=== PATIENT | female | born 1995 | race Caucasian/White ===

== ENCOUNTER 2024-05-06 06:40 | Inpatient (IN) | payer OTHER ==
[2024-05-06] MEDS ORDERED: Sodium Chloride 0.9% 10 ML Syringe FLUSH PRN (06:59)
[2024-05-06] MEDS ORDERED: Carboprost Tromethamine 250 MCG/1 mL Vial IM PRN (06:59)
[2024-05-06] MEDS ORDERED: Butorphanol 2 MG/ML SDV IVPUSH PRN (06:59)
[2024-05-06] MEDS ORDERED: Terbutaline 1 MG/ML SDV SUBCUT PRN (06:59)
[2024-05-06] MEDS ORDERED: Misoprostol 200 MCG Tab PO PRN (06:59)
[2024-05-06] MEDS ORDERED: Sodium Chloride 0.9% 20 ML SDV IV PRN (06:59)
[2024-05-06] MEDS ORDERED: Sodium Chloride 0.9% 2.5 ML Syringe FLUSH PRN (06:59)
[2024-05-06] MEDS ORDERED: Methylergonovine 0.2 MG/1 ML Amp IM PRN (06:59)
[2024-05-06] MEDS ORDERED: Water For Irrigation,Sterile 1,000 ML Container IRR PRN (06:59)
[2024-05-06] MEDS ORDERED: Oxytocin/0.9 % Sodium Chloride 30 UNIT/500 ML BAG IV SCH (07:00)
[2024-05-06 08:19] LABS: HEMATOCRIT 33.9 % (37.0-47.0); HEMOGLOBIN 11.7 g/dL (12.0-16.0); MEAN CORPUSCULAR HEMOGLOBIN 29.7 pg (28.0-32.0); MEAN CORPUSCULAR HGB CONC 34.5 g/dL (32.0-36.0); MEAN PLATELET VOLUME 10.5 fL (9.4-12.3); PLATELET COUNT,PLT 303 K/uL (150-400); RED BLOOD CELL COUNT 3.94 M/uL (4.10-5.30); WHITE BLOOD CELL COUNT,WBC 14.51 K/uL (3.9-11.3)
[2024-05-06] MEDS: Misoprostol 50 MCG (1/2 of 100 MCG) Tab PO ONE (08:51)
[2024-05-06] MEDS: Misoprostol 25 MCG (1/4 of 100 MCG) Tab VAG PRN ×2 (08:52→13:08)
[2024-05-06] MEDS ORDERED: Albuterol 8 GM Inhaler INH PRN (08:59)
[2024-05-06] MEDS: Lactated Ringers 1,000 ML IV SCH (17:53)
[2024-05-06] MEDS: Oxytocin/0.9 % Sodium Chloride 30 UNIT/500 ML BAG IV SCH (17:53)
[2024-05-06] MEDS ORDERED: Ropivacaine HCl/PF 200 ML ONE (20:20)
[2024-05-06] MEDS ORDERED: Bupivacaine 0.5% 10 ML SDV ONE (20:20)
[2024-05-06] MEDS ORDERED: Phenylephrine HCl In 0.9% NaCl 1 MG/10 ML Syringe ONE (20:20)
[2024-05-06] MEDS: Ropivacaine HCl/PF 400 MG in Premix Bag 1 BAG EPIDUR SCH (20:42)
[2024-05-06] MEDS ORDERED: ePHEDrine 50 MG/ML SDV IVPUSH PRN (20:48)
[2024-05-06] MEDS ORDERED: Bupivacaine 0.5% 10 ML SDV INJECT ONE (20:48)
[2024-05-06] MEDS ORDERED: ePHEDrine 50 MG/ML SDV IM PRN (20:48)
[2024-05-06] MEDS ORDERED: dexmedeTOMIDine HCl 200 MCG/2 ML SDV EPIDUR SCH (21:00)
[2024-05-07] MEDS: Ondansetron 4 MG/2 ML SDV IVPUSH PRN (01:53)
[2024-05-07] MEDS: Phenylephrine HCl In 0.9% NaCl 1 MG/10 ML Syringe IVPUSH PRN (02:00)
[2024-05-07 09:33] LABS: PH,UMBILICAL ARTERIAL 7.322 (7.18-7.38)
[2024-05-07 09:34] LABS: PH,UMBILICAL VENOUS 7.325 (7.25-7.45)
[2024-05-07] MEDS: Ibuprofen 800 MG Tab PO PRN (09:47)
[2024-05-07] MEDS: Benzocaine/Menthol 20%-0.5% Spray 78 GM Cannister TOP PRN (09:47)
[2024-05-07] MEDS: Witch Hazel Medicated Pads 40/Jar TOP PRN (09:48)
[2024-05-07] MEDS: Lanolin 100% Cream 7 GM Tube TOP PRN (09:48)
[2024-05-07] MEDS: Lidocaine 1% 50 ML MDV INJECT PRN (10:08)
[2024-05-07] MEDS: Albuterol 0.083% 2.5 MG/3 ML Neb Soln NEB PRN (15:07)
[2024-05-07] MEDS: Acetaminophen 500 MG Tab PO PRN (15:09)
[2024-05-07] MEDS: Docusate Sodium 100 MG Cap PO PRN (19:56)
[2024-05-07] MEDS: Ferrous Sulfate 325 MG Tab PO SCH (20:00)
[2024-05-07] MEDS: guaiFENesin/Dextromethorphan 100-10 MG/5 ML Soln 10 ML Cup PO PRN (21:49)
[2024-05-08 06:34] LABS: HEMATOCRIT 33.3 % (37.0-47.0); MEAN CORPUSCULAR HEMOGLOBIN 29.4 pg (28.0-32.0); MEAN PLATELET VOLUME 9.9 fL (9.4-12.3); PLATELET COUNT,PLT 271 K/uL (150-400); RED BLOOD CELL COUNT 3.74 M/uL (4.10-5.30); WHITE BLOOD CELL COUNT,WBC 21.35 K/uL (3.9-11.3)
[2024-05-08] MEDS: Prenatal Multivitamin with Calcium/Folic Acid/Iron Tab PO SCH (08:24)
== END 2024-05-08 16:40 | disposition home or self-care (01) | DRG 807 ==
LOC: MW.OB 06:40 → OBSVTOIN 06:40 → MW.OB 05-07 11:46
PROVIDERS: ADMIT Obstetrics & Gynecology; ATTEND Obstetrics & Gynecology
PROC: 10E0XZZ Delivery of Products of Conception, External Approach (ICD-10-PCS; principal; 2024-05-07)
PROC: 3E033VJ Introduction of Other Hormone into Peripheral Vein, Percutaneous Approach (ICD-10-PCS; 2024-05-07)
PROC: 3E0P7VZ Introduction of Hormone into Female Reproductive, Via Natural or Artificial Opening (ICD-10-PCS; 2024-05-07)
PROC: 0HQ9XZZ Repair Perineum Skin, External Approach (ICD-10-PCS; 2024-05-07)
PROC: 3E0R3BZ Introduction of Anesthetic Agent into Spinal Canal, Percutaneous Approach (ICD-10-PCS; 2024-05-07)
PROC: 00HU33Z Insertion of Infusion Device into Spinal Canal, Percutaneous Approach (ICD-10-PCS; 2024-05-07)
DX: O48.0 Post-term pregnancy (principal); Z37.0 Single live birth; O99.52 Diseases of the respiratory system complicating childbirth; J45.909 Unspecified asthma, uncomplicated; O70.1 Second degree perineal laceration during delivery; Z3A.41 41 weeks gestation of pregnancy; O77.0 Labor and delivery complicated by meconium in amniotic fluid; O99.02 Anemia complicating childbirth; O42.02 Full-term premature rupture of membranes, onset of labor within 24 hours of rupture
CPT/HCPCS: 36415; 51701; 51702; 59025; 59409; 82803; 85027; 86592; 86850; 86900; 86901; A9270-GY; J0665; J2001; J2371; J2405; J2590; J2795; J7120; J7620-GY